=== PATIENT | male | born 1960 | race Caucasian/White ===

== ENCOUNTER 2024-09-27 19:20 | Emergency (ER) | payer OTHER, MEDICARE ==
[2024-09-27] MEDS ORDERED: XYLOCAINE 2% HCL 20 ML MDV ONE ×3 (19:28→19:31)
[2024-09-27 19:38] VITALS: TEMP 98.2
--- NOTE | 2024-09-27 19:50 | ERPHSYRPT ---
- History of Present Illness Source: patient Exam Limitations: no limitations Patient Subjective Stated Complaint: c/o left thumb injury Triage Nursing Assessment: patient brought to ED with c/p left thumb injury. Patient was chopping norm[place] with a hatchet at home and started he misjudged it and sliced his left thumb. Patient has a 2.5cm lacteration on the top of his left thumb. patient rates pain 2/10. Hypertensxive, gait steady, patient doesn't appear to be in any distress at this time. Physician History: Patient has a laceration on his left thumb.It is on the medial aspect right around the IP joint. It is a oblique fracture. It did not go down into any vital structures such as nerves vessels tendons muscles or bone. The wound itself is about 3 cm. Occurred: just prior to arrival Method of Injury: unknown Allergies/Adverse Reactions: adhesive Allergy (Verified 09/27/24 19:25) Hives Hx Tetanus, Diphtheria Vaccination/Date Given: Yes Hx Influenza Vaccination/Date Given: No Hx Pneumococcal Vaccination/Date Given: No Travel Risk - International Travel Have you traveled outside of the country in past 3 weeks: No - Emerging Infectious Disease Are you exhibiting symptoms associated with any current EIDs: No - Review of Systems Constitutional: No Symptoms Musculoskeletal: No Symptoms Skin: No Symptoms - Past Medical History Pertinent Past Medical History: Yes Neurological History: Peripheral Neuropathy ENT History: No Pertinent History Cardiac History: High Cholesterol, Hypertension Respiratory History: Sleep Apnea Endocrine Medical History: Diabetes Type II Musculoskeletal History: Fractures GI Medical History: Hernia History: No Pertinent History Psycho-Social History: Bipolar Male Reproductive Disorders: No Pertinent History Other Medical History: right leg fractures - Past Surgical History Past Surgical History: Yes Gastrointestinal: Hernia Repair Other Surgical History: right leg surgeries x 3 in 2017 - Social History Smoking Status: Never smoker Exposure to second hand smoke: No - Social Determinants of Health Will the patient participate in the screening: Yes Do you worry about a steady place to live?: No Do you have any problems with any of the following?: No known problems In the past 12 months,have you had to go without utilities?: No Transportation Issues: No Has anyone in your support network made you feel unsafe?: No Have you or anyone in your house had to go w/o enough food: No - Nursing Vital Signs Nursing Vital Signs: Initial Vital Signs Temperature 98.2 F 09/27/24 19:25 Pulse Rate 80 09/27/24 19:25 Respiratory Rate 19 09/27/24 19:25 Blood Pressure 173/94 09/27/24 19:25 O2 Sat by Pulse Oximetry 97 09/27/24 19:25 Pain Scale Pain Intensity 2 - Physical Exam General Appearance: no apparent distress Hand Exam: laceration (Laceration is 3 cm that is on the medial aspect of the thumb. It was not into the subcutaneous tissue such as nerves vessels tendons bone or muscle. It was a pretty clean laceration. It was thoroughly irrigated however. It was explored in a bloodless field.) Neuro/Tendon Exam: normal sensation, normal motor functions Mental Status Exam: alert, oriented x 3 Skin Exam: normal color SpO2: 97 Ordered Tests: Medication Summary Discontinued Medications Generic Name Dose Route Start Last Admin Trade Name Freq PRN Reason Stop Dose Admin Lidocaine HCl Confirm 09/27/24 19:28 Lidocaine Hcl 2% 20 Ml Mdv Administered 09/27/24 19:29 Dose 2.5 ml .ROUTE .STK-MED ONE Lidocaine HCl Confirm 09/27/24 19:29 Lidocaine Hcl 2% 20 Ml Mdv Administered 09/27/24 19:30 Dose 3 ml .ROUTE .STK-MED ONE Lidocaine HCl Confirm 09/27/24 19:31 Lidocaine Hcl 2% 20 Ml Mdv Administered 09/27/24 19:32 Dose 3 ml .ROUTE .STK-MED ONE - Progress Progress Note: Procedure note Area was anesthetized with lidocaine 2%. Good anesthesia was obtained. Wound was explored in a bloodless field. There is no involvement of deep structures. There is no tendon lacerations. The wound was then thoroughly irrigated with water and saline and Hibiclens. The wound was repaired with 5-0 Ethilon in running fashion. Approximately 10 sutures were placed. Good wound closure was obtained. A mild sharp pressure dressing was applied. I will start the patient on Augmentin. A tetanus shot was given as well. 09/27/24 19:50 Medical Desision Making - Risk of complications Minimal Risk: Minimal risk of morbidity - Departure Departure Disposition: Home Clinical Impression: Laceration of thumb, left Condition: Stable Critical Care Time: No Instructions: Stitches - ED discharge instructions
[2024-09-27] MEDS ORDERED: Adacel Vial IM ONE (19:56)
[2024-09-27] MEDS ORDERED: Augmentin 875-125 Tablet ONE (19:56)
[2024-09-27] MEDS: Adacel Vial IM ONE (19:58)
[2024-09-27] MEDS: Augmentin 875-125 Tablet PO ONE (20:00)
[2024-09-27 20:25] VITALS: BP 143/81; PULSE 85; RESP 16; O2SAT 98
== END 2024-09-27 20:23 | disposition home or self-care (01) ==
LOC: ED 19:20
DX: S61.012A Laceration without foreign body of left thumb without damage to nail, initial encounter (principal); W27.0XXA Contact with workbench tool, initial encounter; E78.5 Hyperlipidemia, unspecified; I10 Essential (primary) hypertension; E11.42 Type 2 diabetes mellitus with diabetic polyneuropathy; Z79.899 Other long term (current) drug therapy; Z23 Encounter for immunization
CPT/HCPCS: 12002; 90471; 90715; 99283; A9270-GY